=== PATIENT | male | born 1955 | race Caucasian/White ===

== ENCOUNTER 2019-01-16 12:04 | Emergency (ER) | payer BC ==
[~2019-01-16] VITALS: Wt 104.3 kg
[2019-01-16] MEDS ORDERED: BRILINTA90 M1 PO (12:17)
[2019-01-16] MEDS ORDERED: ASPIRIN ADULT L81 M1 PO (12:18)
[2019-01-16 15:08] LABS: BASO # 0.1 10*3/uL (0.0-0.1); BASO % 0.4 % (0.0-1.0); EOS % 0.1 % (1.0-4.0); HEMATOCRIT 45.4 % (42.0-52.0); HEMOGLOBIN 15.4 g/dl (14.0-18.0); LYMPH # 1.5 10*3/uL (1.3-4.4); LYMPH % 10.2 % (27.0-41.0); MEAN CORPUSCULAR HGB 30.2 pg (27.0-31.0); MEAN CORPUSCULAR HGB CONC 33.9 g/dl (33.0-37.0); MEAN PLATELET VOLUME 10.9 fl (9.6-12.3); MONO # 0.9 10*3/uL (0.1-1.0); MONO % 5.8 % (3.0-9.0); NEUT # 12.4 10*3/uL (2.3-7.9); PLATELET COUNT AUTOMATED 218 10*3/uL (130-400); RED CELL DISTRI WIDTH 13.1 % (0-14.5)
[2019-01-16 15:25] LABS: ALBUMIN 3.4 gm/dl (3.1-4.5); ALKALINE PHOSPHATASE 79 U/L (45-117); BUN 13 mg/dl (7-24); CHLORIDE 104 mmol/L (98-107); CREATININE 0.98 mg/dL (0.70-1.30); POTASSIUM 3.6 mmol/L (3.5-5.1); SGOT/AST 19 IU/L (3-35); SGPT/ALT 24 U/L (12-78); SODIUM 134 mmol/L (136-145); TOTAL PROTEIN 7.4 gm/dL (6.4-8.2)
[2019-01-16] MEDS ORDERED: NORCO 5-325 TA1 EACH PO (17:54)
== END 2019-01-16 17:48 | disposition home or self-care (01) ==
LOC: ED 12:04
PROVIDERS: Nurse Practitioner Family
DX: S32.029A Unspecified fracture of second lumbar vertebra, initial encounter for closed fracture (principal); I71.9 Aortic aneurysm of unspecified site, without rupture; M54.6 Pain in thoracic spine; Z79.899 Other long term (current) drug therapy; Z79.82 Long term (current) use of aspirin; W17.89XA Other fall from one level to another, initial encounter; Y93.89 Activity, other specified; Y92.89 Other specified places as the place of occurrence of the external cause; Y99.8 Other external cause status